=== PATIENT | female | born 1960 | race Caucasian/White ===

== ENCOUNTER → 2016-07-11 | Outpatient (CLI) | payer MEDICARE, OTHER ==
[~2016-07-11] MED LIST: ACCUPRIL PO; ASPIRIN81 MG PO; CLOPIDOGREL75 MG PO; DEXILANT60 MG PO; FLONASE 0.05% N16 G1; HYDRALAZINE HCL25 MG PO; KLONOPIN0.5 MG PO; LAMICTAL PO; LIPITOR20 MG PO; LISINOPRIL PO; MR; NORVASC PO; PATIENT'S PHARMACY; RISPERDAL2 MG PO
--- NOTE | ~2016-07-11 | ST ---
Unit #: [id number] #: [id number] Patient: XOCHITL SCOTT [id number] [facility]. [address] [address] [id number] O MR#: [id number] NAME: XOCHITL SCOTT : 1960 SEX: F STUDY DATE/TIME: 07/11/2016 UNIT: [facility] ROOM: STUDY DESCRIPTION: Attending Physician: Rosalia Carrillo M.D. Referring Physician: Rosalia Carrillo M.D. Primary Care Physician: Flaquito Gupta M.D. CARDIOLOGY REPORT EXAM Walking Lexiscan Cardiolite stress test. FINDINGS Baseline EKG: Sinus bradycardia, heart rate 58 beats per minute, left atrial abnormality, Q-wave noted in V1, poor R-wave progression, slightly prolonged QT, flattening of ST segment in lateral leads. PROCEDURE Lexiscan is a four-minute test with Lexiscan being injected within the first minute followed by Cardiolite. EKG during the test was equivocal to baseline. No acute ischemic changes. The patient had no complaints of chest pain, palpitations, or dizziness. Had increased shortness of breath and fatigueness which resolved in recovery phase. Next, maximum heart rate response was 122 beats per minute with a maximum blood pressure response of 165/87 mmHg. Next, Cardiolite was injected after Lexiscan within the first minute of the test. Radionuclide tests pending. Please correlate with nuclear images. Dictated by... Kylee Zee A.P.R.N. for Lisa Tirado/milvia TD: 07/11/2016 10:42 JOB #: [id number] CC: Flaquito Gupta M.D. CARDIOLOGY REPORT X Kylee Zee APRN CARDIOLOGY REPORT
--- NOTE | ~2016-07-11 | TH ---
Unit #: [id number] #: [id number] Patient: XOCHITL SCOTT [id number] [address] [address] [id number] O MR#: [id number] NAME: XOCHITL SCOTT : 1960 SEX: F STUDY DATE/TIME: 07/11/2016 UNIT: [facility] ROOM: STUDY DESCRIPTION: Attending Physician: Rosalia Carrillo M.D. Referring Physician: Rosalia Carrillo M.D. Primary Care Physician: Flaquito Gupta M.D. CARDIOLOGY REPORT EXAM Lexiscan Cardiolite stress test, nuclear portion. PROCEDURE Using technetium 99m labeled Cardiolite, rest and stress SPECT images were obtained. Multiple SPECT images were obtained in various views including horizontal and vertical long axis and short axis views of the left ventricle. Images were obtained by gated SPECT method. The patient was administered 11.77 mCi of Cardiolite at rest. The patient was administered 32.7 mCi of Cardiolite after Lexiscan infusion was completed. On the stress images, there is a small area of mild decreased isotope activity in the anteroapical wall. The rest images also show a mild area of decreased isotope activity anteroapically. Comparing rest and stress images, there is no obvious stress-induced ischemia noted. The left ventricular ejection fraction is calculated to be 62%. There is no focal wall motion abnormality seen. CONCLUSION 1. No obvious stress-induced ischemia noted. 2. There is a small area of predominantly fixed defect seen anteroapically most likely due to soft tissue artifact. 3. The left ventricular ejection fraction is calculated to be 62%. 4. There is no focal wall motion abnormality seen. 5. Normal Lexiscan Cardiolite stress test. Dictated by... Lisa Tirado TD: 07/11/2016 16:09 JOB #: [id number] CC: Flaquito Gupta M.D. Unit #: [id number] #: [id number] Patient: XOCHITL SCOTT CARDIOLOGY REPORT X Attavar,Rosalia Z MD <ELECTRONICALLY SIGNED> 11/30/16 1428 CARDIOLOGY REPORT
[2016-07-11 10:43] LABS: CHOLESTEROL 148 mg/dL (0-200); HDL CHOLESTEROL 60 mg/dL (35-95); LDL CHOLESTEROL 78 mg/dL (-130); LDL/HDL RATIO 1 RATIO (0-4); TRIGLYCERIDES 51 mg/dL (10-160)
== END | disposition home or self-care (01) ==
LOC: CNUC 07:42
PROVIDERS: Internal Medicine Cardiovascular Disease
DX: R07.9 Chest pain, unspecified (principal)
CPT/HCPCS: 36415; 78452; 80061; 84443; 93017; A9500; J2785

== ENCOUNTER 2016-11-20 14:06 | Emergency (ER) | payer MEDICARE, OTHER ==
--- NOTE | ~2016-11-20 | EKG ---
PATIENT: XOCHITL SCOTT UNIT #: [id number] Ventricular Rate: 67 BPM Atrial Rate: 67 BPM P-R Interval: 174 ms QRS Duration: 80 ms Q-T Interval: 414 ms QTC Calculation(Bezet): 437 ms P [place]: 56 degrees Calculated R [place]: -21 degrees Calculated T [place]: 35 degrees Diagnosis Line: Normal sinus rhythm Diagnosis Line: Normal ECG Diagnosis Line: Diagnosis Line: Confirmed by CELENA CUETO MD ([id number]) on Diagnosis Line: 11/21/2016 10:38:53 AM INTERPRETING MD: NORY BAKER
[~2016-11-20 14:06] MED LIST changes: -ASPIRIN81 MG PO; -CLOPIDOGREL75 MG PO; -DEXILANT60 MG PO; -FLONASE 0.05% N16 G1; -HYDRALAZINE HCL25 MG PO; -KLONOPIN0.5 MG PO; -LIPITOR20 MG PO; -LISINOPRIL PO; -MR; -PATIENT'S PHARMACY
[2016-11-20 14:46] LABS: BASOPHIL% 0.7 % (0-2.5); EOSINOPHIL# 0.2 X10e3 (0-0.7); EOSINOPHIL% 4.2 % (0.0-7.0); HEMATOCRIT 42.3 % (35.0-45.0); HEMOGLOBIN 13.9 gm/dL (12.0-16.0); LYMPHOCYTE# 1.7 X10e3 (1.0-3.5); LYMPHOCYTE% 29.5 % (17.0-45.0); MEAN CELL VOLUME 85.3 FL (83-96); MEAN CORPUSCULAR HEMOGLOBIN 28.1 PG (28-34); MEAN CORPUSCULAR HGB CONC 32.9 g/dL (30-36); MEAN PLATELET VOLUME 8.5 FL (6.5-11.5); MONOCYTE# 0.4 X10e3 (0-1.0); MONOCYTE% 7.5 % (3.0-12.0); NEUTROPHIL# 3.4 X10e3 (1.5-7.1); NEUTROPHIL% 58.1 % (40-75); PLATELET COUNT 181 X10e3 (140-420); RED BLOOD COUNT 4.95 X10e (3.90-5.30); WHITE BLOOD COUNT 5.9 X10e3 (4.0-10.5)
[2016-11-20 14:48] LABS: DIFF IND NO
[2016-11-20 15:15] LABS: ALBUMIN SERUM 4.2 g/dL (3.5-5.0); BILIRUBIN, DIRECT 0.1 mg/dL (0.0-0.2); BILIRUBIN,INDIRECT 0.2 mg/dL (0.0-0.9); BILIRUBIN,TOTAL 0.3 mg/dL (0.2-2.0); BUN/CREATININE RATIO 15.55; CALCIUM SERUM 9.4 mg/dL (8.4-10.2); CREATININE SERUM 0.9 mg/dL (0.6-1.4); GLOM FILT RATE Estimated 70.5 mL/min (>60); POTASSIUM 3.8 mmol/L (3.5-5.1); PROTEIN TOTAL SERUM 7.3 g/dL (6.0-8.3)
[2016-11-20 17:04] LABS: POC - CKMB 1.7 ng/mL (0.0-7.9); POC - TROPONIN <0.05 ng/mL (<=0.05)
== END 2016-11-20 18:30 | disposition home or self-care (01) ==
LOC: CED 14:06
DX: R51 Headache (principal); R42 Dizziness and giddiness; I10 Essential (primary) hypertension; Z88.5 Allergy status to narcotic agent; Z88.2 Allergy status to sulfonamides; Z88.8 Allergy status to other drugs, medicaments and biological substances
CPT/HCPCS: 36415; 80048; 80076; 82553; 84484; 85025; 93005; 96372; 99284; J1885

== ENCOUNTER 2016-12-17 12:53 | Inpatient (IN) | payer MEDICARE, OTHER ==
[~2016-12-17] VITALS: Ht 157.5 cm; Wt 74.2 kg
--- NOTE | ~2016-12-17 | DS ---
Unit #: [id number] #: [id number] Patient: XOCHITL SCOTT [id number] [facility]. [place], [place] [address] [id number] I MR#: [id number] NAME: XOCHITL SCOTT ROOM: 308 Age: 56 Sex: F Admission Date: 12/17/2016 : 1960 Discharge Date: 12/19/2016 Attending Physician: Davonte Hill M.D. Primary Care Physician: Flaquito Gupta M.D. DISCHARGE SUMMARY DISCHARGE DIAGNOSES 1. Acute left hemispheric event, TIA versus mimic. 2. Hypertension. HOSPITAL COURSE The patient is a 56-year-old female who presented to [facility] emergency department secondary to some tingling and numbness on the right side of her face. She also stated it was associated with some right-sided weakness. Secondary to the symptoms the patient received Alteplase at 13:35 on the day of admission and was admitted to the ICU. At the time of the medication dosing, CT of the head showed an old right frontal infarct, but no acute infarct. The patient tolerated the medicine well and there were no adverse side effects. CT angiogram of the head and neck showed subtle asymmetric filling of the MCA branches with better on the right than left. It was unclear whether this was acute or chronic and did not seem hemodynamically significant. Repeat head CT showed no evidence of bleed. The patient did then undergo MRI of the brain that showed right superior frontal encephalomalacia that was again previously seen, but did not show any acute hemorrhage or acute ischemia. As a result it is unclear whether the patient's presenting symptoms were TIA or some mimic event. At this time, given resolution of symptoms and no further findings on MRI, the patient is being discharged home and should follow up with neurology. She will follow up with [facility] at the next available appointment. DISCHARGE MEDICATIONS 1. Flonase 1 spay each nostril daily. 2. Klonopin 0.5 mg p.o. daily p.r.n. anxiety. 3. Hydralazine 25 mg p.o. b.i.d. 4. Zestril 20 mg p.o. daily. 5. Dexilant 60 mg daily. 6. Aspirin 81 mg daily. 7. Lipitor 20 mg p.o. at nighttime. 8. Plavix 75 mg daily. FOLLOWUP As mentioned above, the patient is to follow up with [facility] next available appointment. Unit #: [id number] #: [id number] Patient: XOCHITL SCOTT Dictated by... Lisa Clark/pushpa TD: 12/20/2016 11:29 JOB #: [id number] DISCHARGE SUMMARY Page 1 of 1 X Davonte Hill MD X DISCHARGE SUMMARY
--- NOTE | ~2016-12-17 | CT4 ---
[facility] A Service of [facility] RADIOLOGY TEXT RESULTS PATIENT: XOCHITL SCOTT LOCATION: [facility]-17 : 56 UNIT #: [id number] AGE: [address]: EMELINA PENA MD SEX: F ORDER DR: [id number] [facility]. [place], [place] [address] [id number] I MR#: [id number] Acc #: [id number] NAME: XOCHITL SCOTT : 1960 SEX: F STUDY DATE/TIME: 12/17/2016 14:45 UNIT: [facility] ROOM: [facility] STUDY DESCRIPTION: CT Abd and Pelv Wo Cont Attending Physician: Emelina Pena M.D. Ordering Physician: Sj Dempsey M.D. Primary Care Physician: Flaquito Gupta M.D. MEDICAL IMAGING REPORT This report is preliminary unless electronic signature is present EXAM CT abdomen and pelvis without contrast HISTORY Right lower quadrant pain starting today after TPA administration for stroke. Evaluate for bleeding. COMPARISON STUDIES 08/22/2013. TECHNIQUE Axial 5 mm images were obtained through the abdomen and pelvis without IV or oral contrast. This CT exam was performed with one or more of the following radiation dose reduction techniques: automatic exposure control, adjustment of mA and/or kV according to patient size, and iterative reconstruction. FINDINGS The liver, gallbladder, spleen, pancreas, adrenal glands and kidneys are normal. The aorta is normal in size. There is no adenopathy. There is contrast being excreted from the kidneys and there is contrast flowing in the bladder. There is no retroperitoneal hematoma and there is no groin hematoma. The aorta is normal in size. The bowel is normal, except for some sigmoid diverticula. The uterus and adnexal regions are normal. Bones show mild degenerative changes. IMPRESSION 1. There is no evidence of retroperitoneal bleeding or right groin bleeding. 2. Study is within normal limits, except for degenerative changes of the lumbar spine. [facility] A Service of [facility] RADIOLOGY TEXT RESULTS PATIENT: XOCHITL SCOTT LOCATION: [facility] : 56 UNIT #: [id number] AGE: [address]: EMELINA PENA MD SEX: F ORDER DR: Dictated by... Dominguez Costello M.D. THIS IS AN ELECTRONICALLY VERIFIED REPORT Dominguez Costello M.D. at 12/18/2016 7:08 AM FEL/pcl TD: 12/17/2016 22:00 JOB #: [id number] MEDICAL IMAGING REPORT Page 1 of 1 COPY
--- NOTE | ~2016-12-17 | CT71 ---
[facility] A Service of [facility] & [facility] RADIOLOGY TEXT RESULTS PATIENT: XOCHITL SCOTT LOCATION: C3A 308-01 : 56 UNIT #: [id number] AGE: [address]: Davonte Hill MD SEX: F ORDER DR: [id number] [facility] [address] [place], [place] [address] [id number] I MR#: [id number] Acc #: [id number] NAME: XOCHITL SCOTT : 1960 SEX: F STUDY DATE/TIME: 12/17/2016 16:41 UNIT: [facility] ROOM: [facility] STUDY DESCRIPTION: CT Head Wo Contrast Attending Physician: Martín Pena M.D. Ordering Physician: Sj Dempsey M.D. Primary Care Physician: Flaquito Gupta M.D. MEDICAL IMAGING REPORT This report is preliminary unless electronic signature is present EXAM CT head 12/17/2016 HISTORY Today. Pain right lower quadrant post tPA, had code stroke CTA studies at 13:10 today. Headache post tPA today. FINDINGS This CT exam was performed with one or more of the following radiation dose reduction techniques: Automatic exposure control, adjustment of mA and/or kV according to patient size, and iterative reconstruction. CT head performed skull base through vertex without intravenous contrast. Comparison 12/17/2016 at 1305 hours. Brainstem unremarkable. Cerebellum and cerebral hemispheres show normal gonzalez matter-white matter differentiation. No hemorrhage. There is no evidence of acute cortical ischemia. Stable area of encephalomalacic change anterior right frontal lobe consistent with remote vascular insult or remote post-traumatic change. The midline structures are nondisplaced. The basal ganglia are intact. The ventricles, cisterns and sulci are normal in size and contour. No intra- or extraaxial mass effect or abnormal intracranial fluid collection. The intraorbital soft tissues are unremarkable. The visualized paranasal sinuses and mastoid air cells are clear. IMPRESSION 1. No change from 1305 hours today. No clearly acute intracranial abnormality. Old area of encephalomalacic change anterior right frontal lobe may reflect remote vascular injury or remote trauma. There is no hemorrhage or intracranial mass effect. Dictated by... [facility] A Service of [facility] & [facility] RADIOLOGY TEXT RESULTS PATIENT: XOCHITL SCOTT LOCATION: [facility] 308-01 : 56 UNIT #: [id number] AGE: [address]: Davonte Hill MD SEX: F ORDER DR: Flaquito Dalton M.D. THIS IS AN ELECTRONICALLY VERIFIED REPORT Flaquito Dalton M.D. at 12/20/2016 7:36 AM FREDDIE/dean TD: 12/18/2016 02:00 JOB #: [id number] MEDICAL IMAGING REPORT Page 1 of 1 COPY
--- NOTE | ~2016-12-17 | EKG ---
PATIENT: XOCHITL SCOTT UNIT #: [id number] Ventricular Rate: 64 BPM Atrial Rate: 64 BPM P-R Interval: 174 ms QRS Duration: 84 ms Q-T Interval: 426 ms QTC Calculation(Bezet): 439 ms P [place]: 55 degrees Calculated R [place]: 27 degrees Calculated T [place]: 34 degrees Diagnosis Line: Normal sinus rhythm Diagnosis Line: Normal ECG Diagnosis Line: When compared with ECG of 20-NOV-2016 14:29, Diagnosis Line: No significant change was found Diagnosis Line: Confirmed by OTIS ISSA MD ([id number]) on 12/18/2016 Diagnosis Line: 12:07:54 AM INTERPRETING MD: MAEGAN BAKER
--- NOTE | ~2016-12-17 | CT18 ---
[facility] A Service of [facility] & [facility] RADIOLOGY TEXT RESULTS PATIENT: XOCHITL SCOTT LOCATION: [place] [address]-17 : 56 UNIT #: [id number] AGE: [address]: EMELINA PENA MD SEX: F ORDER DR: [id number] [facility] [address] [place], [place] [address] [id number] I MR#: [id number] Acc #: [id number] NAME: XOCHITL SCOTT : 1960 SEX: F STUDY DATE/TIME: 12/17/2016 13:16 UNIT: [facility] ROOM: [facility] STUDY DESCRIPTION: CT Angio Head Stroke Attending Physician: Emelina Pena M.D. Ordering Physician: Sj Dempsey M.D. Primary Care Physician: Flaquito Gupta M.D. MEDICAL IMAGING REPORT This report is preliminary unless electronic signature is present EXAM CT angiogram head FINDINGS Please see CT neck for results. Dictated by... Jorge Dave M.D. THIS IS AN ELECTRONICALLY VERIFIED REPORT Jorge Dave M.D. at 12/18/2016 7:08 AM PUNEET/romario TD: 12/17/2016 20:30 JOB #: [id number] MEDICAL IMAGING REPORT Page 1 of 1 COPY
--- NOTE | ~2016-12-17 | CO ---
Unit #: [id number] #: [id number] Patient: XOCHITL SCOTT [id number] [facility]. [place], [place] [address] [id number] I MR#: [id number] NAME: XOCHITL SCOTT ROOM: [facility] Age: 56 Sex: F Admission Date: 12/17/2016 : 1960 Attending Physician: Davonte Hill M.D. Primary Care Physician: Flaquito Gupta M.D. Consultation Date: 12/17/2016 CONSULTATION REPORT ADDENDUM This is an addendum to my dictation done earlier today. Addendum to include CT angiogram with findings discussed with Dr. Noyola at the time of previous dictation and evaluation, not amenable to acute intervention with no proximal clot seen. Will admit here for further monitoring, evaluation, or Intensive Care Unit. We thank you very much for allowing us to assist in the care in this patient from a consultation standpoint. She is improving on the IV alteplase. Will continue monitoring closely with IV fluids and further post alteplase protocol evaluation and MRI imaging. Critical care time spent in evaluation, assessment and decision making with this patient including discussion with patient, patient's family, Dr. Noyola and also ED physician, reviewing imaging, charts and patient education, decision making regarding plan of care is from 12:53 at the time of arrival to 13:43. Dictated by... Machelle Castrejon A.P.R.N. for Lisa Higgins/markos TD: 12/18/2016 08:27 JOB #: [id number] CONSULTATION REPORT Page 1 of 1 X Machelle Castrejon APRN X CONSULTATION REPORT
--- NOTE | ~2016-12-17 | HP ---
Unit #: [id number] #: [id number] Patient: XOCHITL SCOTT [id number] [address] [address] [id number] I MR#: [id number] NAME: XOCHITL SCOTT ROOM: 08503 Age: 56 Sex: F Admission Date: 12/17/2016 : 1960 Attending Physician: Emelina Pena M.D. Primary Care Physician: Flaquito Gupta M.D. HISTORY AND PHYSICAL CHIEF COMPLAINT Tingling and numbness to the right side of the face. HISTORY OF PRESENT ILLNESS The patient is a 56-year-old female with a history of hypertension, seizures, and mitral valve prolapse, brought to the emergency room complaining of tingling and numbness of the right side of the face, associated with weakness on the right side. The patient stated that patient was coming back from an Alcoholics Anonymous sobriety class on [facility] and noted weakness and numbness. The patient called EMS and patient was in the ER within 30 minutes. The patient received TPA at 1:[address] of the head showing an old right frontal infarct and no acute intracranial findings. The patient started feeling better after receiving TPA and is being admitted for the above reasons. She denies any fever, denies any chills, denies any shortness of breath, denies any chest pain, and denies any head trauma. PAST MEDICAL HISTORY 1. Hypertension. 2. Mitral valve prolapse. 3. Seizure disorder. PAST SURGICAL HISTORY 1. Tubal ligation. 2. Heart catheterization. HOME MEDICATIONS 1. Flonase. 2. Dexilant. 3. Lisinopril. 4. Klonopin. 5. Hydralazine. SOCIAL HISTORY Quit smoking and drinking and no illicit drug abuse. FAMILY HISTORY Reviewed. REVIEW OF SYSTEMS Positive for weakness on the right side of the upper and lower extremities and numbness and tingling. Denies any chest pain, denies any shortness of breath, and denies any abdominal pain. Unit #: [id number] #: [id number] Patient: XOCHITL SCOTT PHYSICAL EXAMINATION GENERAL: Patient is lying in bed not in acute distress. VITAL SIGNS: Temperature 97.7, pulse 71, respiratory rate 16, blood pressure 170/97, and saturating 96% on room air. HEENT: Head atraumatic, normocephalic. Pupils equal, round, and reactive to light and accommodation. Extraocular movements are intact. Dry mucous membranes. NECK: Supple. LUNGS: Decreased air entry at the bases. HEART: Regular rate and rhythm. ABDOMEN: Soft. Positive bowel sounds. EXTREMITIES: No cyanosis, no clubbing. NEUROLOGIC: Patient has facial droop on the right side and slurring of speech associated with weakness in the right upper and lower extremities with 2 over 5 compared to the left with 5 over 5. PSYCHIATRIC: Appears anxious. DIAGNOSTIC STUDIES LABORATORY: WBC 5, hemoglobin 14, hematocrit 41.4, and platelets 175,000. Glucose 119. INR is 1. Sodium 139, potassium 3.5, chloride 106, bicarb 24, glucose 121, BUN 13, creatinine 0.9, AST 22, ALT 16, alkaline phosphatase 60, and albumin 4.1. Troponin less than 0.05. IMAGING: CT of the head shows right frontal old infarct and no acute intracranial findings. Chest x-ray shows low lung volumes and no acute cardiopulmonary process. CARDIOLOGY: EKG shows normal sinus rhythm. ASSESSMENT 1. Right-sided weakness secondary to cerebrovascular accident, status post TPA. 2. Hypertension. 3. Seizure disorder. PLAN Admit the patient as inpatient to the ICU. Patient is status post TPA. Continue with post-TPA stroke orders and will have a Neurology consult. Check echo and repeat the labs, and further recommendations will follow. Dictated by Lisa Caro TD: 12/17/2016 16:22 JOB #: [id number] HISTORY AND PHYSICAL Page 1 of 1 X EMELINA PENA MD HISTORY AND PHYSICAL
--- NOTE | ~2016-12-17 | MR18 ---
[facility] A Service of [facility] RADIOLOGY TEXT RESULTS PATIENT: XOCHITL SCOTT LOCATION: [facility] 308 : 56 UNIT #: [id number] AGE: [address]: Davonte Hill MD SEX: F ORDER DR: [id number] [facility] [address]. [place], [place] [address] [id number] I MR#: [id number] Acc #: [id number] NAME: XOCHITL SCOTT : 1960 SEX: F STUDY DATE/TIME: 12/18/2016 13:09 UNIT: [facility] PCU ROOM: 308 STUDY DESCRIPTION: MR Brain Wo Contrast Attending Physician: Davonte Hill M.D. Ordering Physician: Machelle Castrejon A.P.R.N. Primary Care Physician: Flaquito Gupta M.D. MRI CENTER REPORT This report is preliminary unless electronic signature is present. EXAM Brain MRI without contrast, 12/18/[address] dated 12/17/2016. PROCEDURE Routine unenhanced brain MRI. HISTORY Recent tPA infusion, episode of right side paresthesias prompting tPA infusion. FINDINGS Redemonstrated area of right superior frontal encephalomalacia, but there is no MR evidence of recent or acute ischemia. There is no restricted diffusion. There is no acute hemorrhage. There is some old blood product at the margin of the right frontal area of encephalomalacia, but the exam is otherwise unremarkable. Bone marrow signal is normal. Normal flow voids are seen in the cerebral vessels. IMPRESSION Redemonstrated area of right superior frontal encephalomalacia, otherwise, normal unenhanced brain MRI, no evidence of acute hemorrhage or acute ischemia. Tiny amount of chronic blood product is associated with the area of encephalomalacia, but again no acute abnormality is identified. Dictated by... Aleks Guerrero M.D. [facility] A Service of [facility] RADIOLOGY TEXT RESULTS PATIENT: XOCHITL SCOTT LOCATION: [facility] 308 : 56 UNIT #: [id number] AGE: [address]: Davonte Hill MD SEX: F ORDER DR: THIS IS AN ELECTRONICALLY VERIFIED REPORT Aleks Guerrero M.D. at 12/27/2016 4:58 PM TEV/psc TD: 12/18/2016 21:40 JOB #: [id number] MRI CENTER REPORT Page 1 of 1 COPY
--- NOTE | ~2016-12-17 | EKG ---
PATIENT: XOCHITL SCOTT UNIT #: [id number] Ventricular Rate: 56 BPM Atrial Rate: 56 BPM P-R Interval: 190 ms QRS Duration: 88 ms Q-T Interval: 452 ms QTC Calculation(Bezet): 436 ms P [place]: 52 degrees Calculated R [place]: -19 degrees Calculated T [place]: 70 degrees Diagnosis Line: Sinus bradycardia Diagnosis Line: Otherwise normal ECG Diagnosis Line: When compared with ECG of 17-DEC-2016 13:24, Diagnosis Line: T wave amplitude has decreased in Anterior leads Diagnosis Line: Confirmed by OTIS ISSA MD ([id number]) on 12/18/2016 Diagnosis Line: 11:05:40 PM INTERPRETING MD: MAEGAN BAKER
--- NOTE | ~2016-12-17 | CO ---
Unit #: [id number] #: [id number] Patient: XOCHITL SCOTT [id number] [facility] [address] [place], [place] [address] [id number] I MR#: [id number] NAME: XOCHITL SCOTT ROOM: [facility] Age: 56 Sex: F Admission Date: 12/17/2016 : 1960 Attending Physician: Martín Pena M.D. Primary Care Physician: Flaquito Gupta M.D. Consultation Date: 12/17/2016 CONSULTATION REPORT CONSULTING PHYSICIAN Dr. Dempsey - Code Stroke protocol. PATIENT IDENTIFICATION This is a 56-year-old, right handed, female evaluated in the ER, room T5, at [facility]. SOURCE OF INFORMATION Obtained from the patient, the patient's sister via the telephone, as well as the medical record. HISTORY OF PRESENT ILLNESS This is a 56-year-old, right handed female, with a past medical history of bipolar disorder, hypertension, mitral valve prolapse, possible seizure disorder, history of prior traumatic brain injury. Denies a history of known stroke or intracranial hemorrhage. He presents to [facility] with report of change in speech, right sided weakness and numbness. Her last known well was around 11:45 to noon when she was driving. She called her sister when she noticed that she was having numbness and tingling and weakness on the right side and was having weakness and just "didn't feel right." She called her sister and then called EMS. She was brought in for a Code Stroke. They called about seven minutes prior to arrival to let us know that they were coming. She had some worsening of her speech here. EMS reports it had gotten worse as she was en route to the hospital. She was having trouble with expressing her words but was able to follow commands. She did have some weakness on the right arm and leg but no clear right facial weakness. May be questionably a droop but no profound weakness seen. No gaze palsy, no visual field cut. She did appear to have some sensory deficit on the right side compared to the left with some neglect. EMS reported that she had some stuttering initially. There is a mild waxing and waning to the severity of her speech difficulty and occasionally can get some clear phrases out but, given her measurable disabling deficit of speech, difficulty in continued right sided weakness, we elected to treat her with alteplase with her consent. The case was discussed with Dr. Noyola and reviewed with him prior to treatment with alteplase and also discussed with the ED physician, Dr. Dempsey, who saw the patient on arrival and reviewed risks and benefits with the patient. The patient's initial NIH was 10. She is improving significantly as alteplase is infusing. PAST MEDICAL HISTORY 1. Hypertension. 2. Mitral valve prolapse. 3. Questionable seizure disorder, details unclear. Unit #: [id number] #: [id number] Patient: XOCHITL SCOTT 4. History of traumatic brain injury in . She denies any history of intracranial hemorrhage, malignancy or any recent injury or surgery. 5. Bipolar disorder. 6. Drug use in the past with cocaine. ALLERGIES Codeine, Keflex, Bactrim. FAMILY HISTORY Positive for malignancy. Positive for stroke in her father. Positive for CAD. SOCIAL HISTORY The patient has a history of tobacco use and cocaine use in the past. No known alcohol use or abuse. She denies current tobacco use. REVIEW OF SYSTEMS 14-point review of systems attempted. Pertinent positives are as discussed above. She did not complain of abdominal pain prior to administration of alteplase but complains of some right abdominal pain now. She is going for a CAT scan per the ED physician. Otherwise, she denies any headache, fever or chills, change in weight or routine, recent illness or injury, blood in the urine or stool, bruising or bleeding. Review of systems is negative unless as discussed above. PHYSICAL EXAMINATION VITAL SIGNS: Temperature 97.8, pulse 71, respirations 16, blood pressure 170/97. Oxygen saturation 96%. Height 5 feet 0 inches. Her weight has not yet been documented but was obtained prior to alteplase calculations administration and is as per chart. NEUROLOGICAL EXAM: The patient is awake. She is tearful and upset. She is fully alert, however, she is unable to tell me her correct age. She can tell me the month and the year. She can tell me where she is at. She can follow simple commands but she has significant trouble with expressing herself through words and some trouble with naming and identifying but can follow commands. She has some dysarthria. CRANIAL NERVE EXAM: She responds to threat in the primary peripheral visual cuevas. Eyes are conjugate without ptosis or nystagmus. Extraocular movements are intact. Sensation of the face and scalp does reveal decreased sensation on the right compared to the left with some neglect including the arms and the legs on the right compared to the left. Hearing is intact to finger rub and conversation. Tongue is midline. Unable to fully visualize uvula and palate. Head turning and shoulder shrug was unremarkable. Neck was supple. MOTOR EXAM: She demonstrates normal bulk and tone on the left. Strength 5 out of 5 on the right. She has a drift of the right upper and right lower extremity. Can lift against gravity but has difficulty. SENSORY EXAM: As discussed above. GAIT AND ROMBERG: Deferred. REFLEXES: Unable to elicit. Toes are equivocal. COORDINATION: She has exaggerated past-pointing bilaterally. DIAGNOSTIC STUDIES IMAGING: CT of the head without contrast is negative for any acute intracranial findings. It does show a prior area of encephalomalacia on the right frontal lobe. Unit #: [id number] #: [id number] Patient: XOCHITL SCOTT CT angiogram of the head and neck per stroke protocol is pending. There is no acute obvious vascular cutoff but there is a symmetric filling of the left MCA compared to the right MCA in the mid to distal branches. Could be chronic versus possibly acute. LABORATORY: BMP unremarkable with a glucose of 121. PT 10.4, INR 1.0, PTT 27.3. Glucose 119. CBC unremarkable. IMPRESSION 1. Presentation concerning for possible acute left MCA infarct, improving with alteplase. 2. Hypertension. 3. History of tobaccoism, reformed. 4. History of bipolar disorder. PLAN Discussed the CT angiogram results with Dr. Noyola at this time. Appears to be distal asymmetric filling. Patient is improving with alteplase. I will continue to monitor closely and discuss with Dr. Noyola for further recommendations emergently versus non-emergently. We will follow along with you. Thank you very much for allowing us to assist in the care of this patient. Dictated by... Machelle Castrejon A.P.R.N. for Lisa Higgins/miryam TD: 12/18/2016 07:04 JOB #: [id number] CONSULTATION REPORT Page 1 of 1 X Machelle Castrejon APRN CONSULTATION REPORT
--- NOTE | ~2016-12-17 | CT72 ---
[facility] A Service of [facility] & [facility] RADIOLOGY TEXT RESULTS PATIENT: XOCHITL SCOTT LOCATION: [address] : [birth year] UNIT #: [id number] AGE: [address]: Davonte Hill MD SEX: F ORDER DR: [id number] [facility] [address] [place], [place] [address] [id number] I MR#: [id number] Acc #: [id number] NAME: XOCHITL SCOTT : 1960 SEX: F STUDY DATE/TIME: 12/17/2016 13:05 UNIT: [facility] ROOM: [facility] STUDY DESCRIPTION: CT Head Wo Contrast Stroke Attending Physician: Davonte Hill M.D. Ordering Physician: Sj Dempsey M.D. Primary Care Physician: Flaquito Gupta M.D. MEDICAL IMAGING REPORT This report is preliminary unless electronic signature is present EXAM Head CT without contrast. HISTORY Numbness and tingling, right side of body beginning 1 hour ago, worsening speech in the last 15 minutes. Right side weakness, stroke. 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 Hypertension and seizures. FINDINGS Multiple axial images were obtained from the skull base to vertex without intravenous contrast administration. This CT exam was performed with one or more of the following radiation dose reduction techniques: automatic exposure control, adjustment of mA and/or kV according to patient size, and iterative reconstruction. The ventricles are normal in size, shape and position. There is an old infarct with encephalomalacia in the right frontal lobe. There is no midline shift. There is no mass or mass effect, hemorrhage or acute infarct. The visualized paranasal sinuses are clear. IMPRESSION Old right frontal lobe infarct. No acute intracranial abnormality. STAT * RESULT Dictated by... Sumit Fink M.D. THIS IS AN ELECTRONICALLY VERIFIED REPORT Sumit Fink M.D. at 12/18/2016 2:35 PM KRT/pc TD: 12/17/2016 13:15 JOB #: [id number] [facility]. [facility] A Service of [facility] & [facility] RADIOLOGY TEXT RESULTS PATIENT: XOCHITL SCOTT [facility] [birth year] UNIT #: [id number] AGE: [address]: Davonte Hill MD SEX: F ORDER DR: MEDICAL IMAGING REPORT Page 1 of 1 COPY
--- NOTE | ~2016-12-17 | CT24 ---
[facility] A Service of [facility] & [facility] RADIOLOGY TEXT RESULTS PATIENT: XOCHITL SCOTT LOCATION: [address] : [birth year] UNIT #: [id number] AGE: [address]: EMELINA PENA MD SEX: F ORDER DR: [id number] [facility] [address] [place], [place] [address] [id number] I MR#: [id number] Acc #: [id number] NAME: XOCHITL SCOTT : 1960 SEX: F STUDY DATE/TIME: 12/17/2016 13:16 UNIT: [facility] ROOM: [facility] STUDY DESCRIPTION: CT Angio Neck Stroke Attending Physician: Emelina Pena M.D. Ordering Physician: Sj Dempsey M.D. Primary Care Physician: Flaquito Gupta M.D. MEDICAL IMAGING REPORT This report is preliminary unless electronic signature is present EXAM CT head and neck with contrast with carotid CT angiography HISTORY Numbness and tingling in the right side beginning 1 hour prior to arrival with speech disturbance. History of previous infarct. TECHNIQUE Axial imaging was obtained from the mid mediastinum to the top of the head with contrast. 100 cc of Isovue was used. CT angiography was performed with thick sliding MIPs, curved planar reformats and 3-D volume imaging with surface shading and volume shaded display. The study is correlated with a cervical MRA from 10/10/09. This CT exam was performed with one or more of the following radiation dose reduction techniques: automatic exposure control, adjustment of mA and/or kV according to patient size, and iterative reconstruction. FINDINGS Extravascular structures are unremarkable. The CT angiographic study shows wide patency of the great vessels off of the arch. In the posterior circulation, both vertebral arteries are widely patent. The left is a little bit larger than the right. The basilar artery is widely patent. In the carotid circulation, there is no evidence of plaque. No stenosis is seen across the bifurcations by NASCET criteria. The cervical internal carotid up through the siphons are widely patent. In the intracranial circulation, there is no evidence of aneurysm or major branch vessel occlusion. Mid to distal Sylvian fissure branches on the [facility] A Service of [facility] & [facility] RADIOLOGY TEXT RESULTS PATIENT: XOCHITL SCOTT LOCATION: [facility]17 : 56 UNIT #: [id number] AGE: [address]: EMELINA PENA MD SEX: F ORDER DR: left fill less extensively than on the right. This suggests probable small vessel occlusive disease in the left mid to distal MCA distribution. IMPRESSION Subtle asymmetric filling of MCA branches with better filling on the right than on the left. This could reflect either chronic disease in the left MCA distribution or embolization to mid to distal MCA branches on an acute basis. The major arterial segments intracranially are patent with no evidence of major branch vessel occlusion. The remainder of the CTA study is unremarkable. Dictated by... Jorge Dave M.D. THIS IS AN ELECTRONICALLY VERIFIED REPORT Jorge Dave M.D. at 12/18/2016 7:08 AM PUNEET/romario TD: 12/17/2016 20:34 JOB #: [id number] MEDICAL IMAGING REPORT Page 1 of 1 COPY
--- NOTE | ~2016-12-17 | A ---
[facility] Nutrition Therapy DATE: 12/19/16 Patient: XOCHITL SCOTT Physician: [email or web address] Address: [address] Room/Bed: [address] [place] [address], Zip: [place] [address] Admit Date: 12/17/16 Date of : [birth year] Height: 5 2 Weight: 163 74.2 NUTRITIONAL ASSESSMENT: REASON: Routine stroke consult Admitting dx: 56 y/o female admitted with possible CVA, s/p TPA PMH: HTN, seizure disorder, CVA Anthropometrics: Ht: 62", Wt: 163 lbs, BMI: 29 (overweight) Labs: A1C and lipid panel WNL Meds: PPI Assessment: Chart reviewed, events noted. See admitting dx and PMH as stated above. RD familiar with patient from ICU rounds yesterday. Original CT showed no acute infarct only old infarct. MRI done yesterday- [employer] Payment report reviewed- report appears negative for new stroke however MD has not yet confirmed this or spoke with the patient regarding her MRI results yet. She is tolerating a healthy heart diet per [employer] recs, with no chewing/swallowing difficulties and adequate PO intake. She denies any recent weight loss or gain. Due to normal lipid panel, no dietary restrictions necessary at this time. I did encourage weight loss due to her BMI and overall healthy eating pattern. Will write to change diet to regular per patient request. She denies any further nutritional needs. See RD recs below. Dx: No nutrition diagnosis Intervention: Regular diet Monitoring, Evaluation and Goals: PO intake 50-100% of meals. Recommendations: Please change diet to regular per patient request. See RD assessment above. Please consult with any further nutritional needs. Diet education not warranted at this time. RD will follow Not at nutrition risk Respectfully, [facility] Therapy DATE: 12/19/16 Patient: XOCHITL SCOTT Physician: [email or web address] Address: [address] Room/Bed: [address] [place] [address], Zip: [place] [address] Admit Date: 12/17/16 Date of : 56 Height: 5 2 Weight: 163 74.2 Nena Ramires, MARKIE, LD [employer] [facility] cc: client file
--- NOTE | ~2016-12-17 | CR72 ---
[facility] A Service of [place] & [facility] RADIOLOGY TEXT RESULTS PATIENT: XOCHITL SCOTT LOCATION: [address] : 56 UNIT #: [id number] AGE: [address]: EMELINA PENA MD SEX: F ORDER DR: [id number] [facility] [address]. [place], [place] [address] [id number] I MR#: [id number] Acc #: [id number] NAME: XOCHITL SCOTT : 1960 SEX: F STUDY DATE/TIME: 12/17/2016 13:39 UNIT: [facility] ROOM: [facility] STUDY DESCRIPTION: CR Chest Single View Portable Attending Physician: Emelina Pena M.D. Ordering Physician: Sj Dempsey M.D. Primary Care Physician: Flaquito Gupta M.D. MEDICAL IMAGING REPORT This report is preliminary unless electronic signature is present EXAM Chest portable 12/17/2016 1339 hours HISTORY 56-year-old woman with altered mental status. Numbness and tingling on right side of face. History of hypertension, former smoker. COMPARISON 06/04/2016 FINDINGS Portable upright chest demonstrates lower lung volumes than on the prior study. Heart size is stable. Aorta is mildly tortuous. The lungs are clear and there are no effusions. IMPRESSION Lower lung volumes with no acute cardiopulmonary findings. Dictated by... Olamide Garcia M.D. THIS IS AN ELECTRONICALLY VERIFIED REPORT Olamide Garcia M.D. at 12/17/2016 9:02 PM IRAJ/dean TD: 12/17/2016 20:12 JOB #: [id number] MEDICAL IMAGING REPORT Page 1 of 1 COPY
[2016-12-17 13:19] LABS: BASOPHIL# 0.1 X10e3 (0-0.3); BASOPHIL% 1.3 % (0-2.5); DIFF IND NO; EOSINOPHIL# 0.2 X10e3 (0-0.7); EOSINOPHIL% 4.6 % (0.0-7.0); HEMATOCRIT 41.4 % (35.0-45.0); LYMPHOCYTE# 1.3 X10e3 (1.0-3.5); LYMPHOCYTE% 25.9 % (17.0-45.0); MEAN CELL VOLUME 84.6 FL (83-96); MEAN CORPUSCULAR HEMOGLOBIN 28.6 PG (28-34); MEAN CORPUSCULAR HGB CONC 33.8 g/dL (30-36); MONOCYTE# 0.4 X10e3 (0-1.0); MONOCYTE% 8.4 % (3.0-12.0); NEUTROPHIL% 59.8 % (40-75); PLATELET COUNT 175 X10e3 (140-420); RED BLOOD COUNT 4.89 X10e (3.90-5.30); RED CELL DISTRIBUTION WIDTH 13.1 % (11.0-15.5)
[2016-12-17 13:27] LABS: PARTIAL THROMBOPLASTIN TIME 27.3 SECONDS (23.5-31.3); PROTHROMBIN TIME (PATIENT) 10.4 SECONDS (10.0-11.7)
[2016-12-17 13:36] LABS: ALBUMIN SERUM 4.1 g/dL (3.5-5.0); BILIRUBIN, DIRECT 0.1 mg/dL (0.0-0.2); BILIRUBIN,INDIRECT 0.5 mg/dL (0.0-0.9); BILIRUBIN,TOTAL 0.6 mg/dL (0.2-2.0); BUN/CREATININE RATIO 14.44; CALCIUM SERUM 8.9 mg/dL (8.4-10.2); CREATININE SERUM 0.9 mg/dL (0.6-1.4); GLOM FILT RATE Estimated 70.5 mL/min (>60); POTASSIUM 3.5 mmol/L (3.5-5.1)
[2016-12-17] MEDS ORDERED: KLONOPIN0.5 MG PO (13:43)
[2016-12-17] MEDS ORDERED: PATIENT'S PHARMACY (13:43)
[2016-12-17] MEDS ORDERED: HYDRALAZINE HCL25 MG PO (13:43)
[2016-12-17] MEDS ORDERED: FLONASE 0.05% N16 G1 (13:43)
[2016-12-17] MEDS ORDERED: DEXILANT60 MG PO (13:43)
[2016-12-17] MEDS ORDERED: LISINOPRIL PO (13:43)
[2016-12-17 13:48] LABS: POC - CKMB 3.9 ng/mL (0.0-7.9); POC - TROPONIN <0.05 ng/mL (<=0.05)
[2016-12-17] MEDS ORDERED: MR (14:04)
[2016-12-17 15:30] LABS: URINE SOURCE CLEAN CATCH
[2016-12-17 15:31] LABS: POC - GFR >60.0 mL/min (>60)
[2016-12-17 15:35] LABS: POC - CKMB 2.9 ng/mL (0.0-7.9); POC - TROPONIN <0.05 ng/mL (<=0.05)
[2016-12-17 15:38] LABS: URINE APPEARANCE CLEAR; URINE BILIRUBIN NEG (NEG); URINE BLOOD 1+ (NEG); URINE COLOR YELLOW; URINE GLUCOSE NEG (NEG); URINE KETONE NEG (NEG); URINE LEUKOCYTE ESTERASE NEG (NEG); URINE NITRATE NEG (NEG); URINE PH 7.5 (5-8); URINE PROTEIN NEG (NEG); URINE SPECIFIC GRAVITY 1.021 (1.003-1.035); URINE UROBILINOGEN 0.2 MG/DL (NEG)
[2016-12-17 15:41] LABS: URINE BACTERIA AUWI NEG (NEGATIVE); URINE SQUAMOUS EPITHELIAL CELL NONE SEEN /[HPF]; UWBCS1 AUWI 0-2 (0-5)
[2016-12-17 15:50] LABS: CULTURE INDICATED? NO
[2016-12-17 16:01] LABS: AMPHETAMINE NEG (NEG); BARBITURATES NEG (NEG); BENZODIAZEPINES NEG (NEG); COCAINE NEG (NEG); MARIJUANA NEG (NEG); OPIATES NEG (NEG); TRICYCLIC ANTIDEPRESSANTS NEG (NEG); U METHADONE NEG (NEG)
[2016-12-18 02:29] LABS: BASOPHIL# 0.1 X10e3 (0-0.3); BASOPHIL% 1.1 % (0-2.5); EOSINOPHIL# 0.2 X10e3 (0-0.7); EOSINOPHIL% 5.1 % (0.0-7.0); HEMATOCRIT 39.1 % (35.0-45.0); HEMOGLOBIN 13.2 gm/dL (12.0-16.0); LYMPHOCYTE# 1.3 X10e3 (1.0-3.5); LYMPHOCYTE% 26.5 % (17.0-45.0); MEAN CELL VOLUME 84.9 FL (83-96); MEAN CORPUSCULAR HEMOGLOBIN 28.6 PG (28-34); MEAN CORPUSCULAR HGB CONC 33.6 g/dL (30-36); MEAN PLATELET VOLUME 8.3 FL (6.5-11.5); MONOCYTE# 0.4 X10e3 (0-1.0); MONOCYTE% 9.4 % (3.0-12.0); NEUTROPHIL# 2.8 X10e3 (1.5-7.1); NEUTROPHIL% 57.9 % (40-75); PLATELET COUNT 170 X10e3 (140-420); RED BLOOD COUNT 4.61 X10e (3.90-5.30); WHITE BLOOD COUNT 4.8 X10e3 (4.0-10.5)
[2016-12-18 02:30] LABS: DIFF IND NO
[2016-12-18 02:53] LABS: BUN/CREATININE RATIO 17.14; CALCIUM SERUM 8.5 mg/dL (8.4-10.2); CREATININE SERUM 0.7 mg/dL (0.6-1.4); GLOM FILT RATE Estimated 95.5 mL/min (>60); POTASSIUM 3.3 mmol/L (3.5-5.1)
[2016-12-18 15:28] LABS: BASOPHIL% 0.8 % (0-2.5); EOSINOPHIL# 0.2 X10e3 (0-0.7); EOSINOPHIL% 2.7 % (0.0-7.0); HEMATOCRIT 44.6 % (35.0-45.0); HEMOGLOBIN 14.8 gm/dL (12.0-16.0); LYMPHOCYTE# 1.3 X10e3 (1.0-3.5); LYMPHOCYTE% 22.5 % (17.0-45.0); MEAN CELL VOLUME 85.3 FL (83-96); MEAN CORPUSCULAR HEMOGLOBIN 28.4 PG (28-34); MEAN CORPUSCULAR HGB CONC 33.2 g/dL (30-36); MEAN PLATELET VOLUME 8.4 FL (6.5-11.5); MONOCYTE# 0.5 X10e3 (0-1.0); NEUTROPHIL# 3.7 X10e3 (1.5-7.1); PLATELET COUNT 193 X10e3 (140-420); RED BLOOD COUNT 5.22 X10e (3.90-5.30); WHITE BLOOD COUNT 5.6 X10e3 (4.0-10.5)
[2016-12-18 15:31] LABS: DIFF IND NO
[2016-12-19] MEDS ORDERED: LIPITOR20 MG PO (13:48)
[2016-12-19] MEDS ORDERED: ASPIRIN81 MG PO (13:48)
[2016-12-19] MEDS ORDERED: CLOPIDOGREL75 MG PO (13:49)
== END 2016-12-19 14:26 | disposition home or self-care (01) | DRG 69 ==
LOC: CED 12:53 → CEDOF 15:16 → CED 15:52 → CEDOF 16:58 → CICCU3 16:58 → C3A PCU 12-18 15:54
PROVIDERS: Emergency Medicine; Internal Medicine; Nurse Practitioner
PROC: 3E03317 Introduction of Other Thrombolytic into Peripheral Vein, Percutaneous Approach (ICD-10-PCS; principal; 2016-12-17)
PROC: B32GYZZ Computerized Tomography (CT Scan) of Bilateral Vertebral Arteries using Other Contrast (ICD-10-PCS; 2016-12-17)
PROC: B32RYZZ Computerized Tomography (CT Scan) of Intracranial Arteries using Other Contrast (ICD-10-PCS; 2016-12-17)
PROC: B328YZZ Computerized Tomography (CT Scan) of Bilateral Internal Carotid Arteries using Other Contrast (ICD-10-PCS; 2016-12-17)
DX: G45.9 Transient cerebral ischemic attack, unspecified (principal); G93.89 Other specified disorders of brain; Q21.1 Atrial septal defect; I10 Essential (primary) hypertension; G40.909 Epilepsy, unspecified, not intractable, without status epilepticus; I34.1 Nonrheumatic mitral (valve) prolapse; Z98.51 Tubal ligation status; Z87.891 Personal history of nicotine dependence; Z87.820 Personal history of traumatic brain injury; F31.9 Bipolar disorder, unspecified; R51 Headache; R29.810 Facial weakness
CPT/HCPCS: 36415; 51702; 70450; 70496; 70498; 70551; 71010; 74176; 80048; 80061; 80076; 80307; 81003; 82553; 82565; 82947; 83036; 84443; 84484; 85025; 85610; 85730; 86850; 86900; 86901; 92523-GN; 92610; 93005; 93306; 97162; 97165; 99291; G8978-GP; G8979-GP; G8980-GP; G8987-GO; G8988-GO; G8989-GO; G8996-GN; G8997-GN; G8998-GN; J2997; Q9967

== ENCOUNTER → 2017-01-08 | Outpatient (CLI) | payer MEDICARE, OTHER ==
[~2017-01-08] MED LIST changes: +ASPIRIN81 MG PO; +CLOPIDOGREL75 MG PO; +DEXILANT60 MG PO; +FLONASE 0.05% N16 G1; +HYDRALAZINE HCL25 MG PO; +KLONOPIN0.5 MG PO; +LIPITOR20 MG PO; +LISINOPRIL PO; +MR; +PATIENT'S PHARMACY
--- NOTE | ~2017-01-08 | MY26 ---
[facility] A Service of [facility] & [facility] RADIOLOGY TEXT RESULTS PATIENT: XOCHITL SCOTT LOCATION: [facility] : 56 UNIT #: [id number] AGE: [address]: Flaquito Gupta MD SEX: F ORDER DR: [id number] [facility] [address] [place], [place] [address] [id number] O MR#: [id number] Acc #: [id number] NAME: XOCHITL SCOTT : 1960 SEX: F STUDY DATE/TIME: 01/08/2017 9:44 UNIT: [facility] ROOM: STUDY DESCRIPTION: MY GILDA DIAGNOSTIC W/ CAD BILAT Attending Physician: Flaquito Gupta M.D. Referring Physician: Flaquito Gupta M.D. Ordering Physician: Flaquito Gupta M.D. Primary Care Physician: Flaquito Gupta M.D. MEDICAL IMAGING REPORT This report is preliminary unless electronic signature is present EXAM Bilateral digital diagnostic mammogram with CAD and targeted right breast ultrasound, 01/08/2017 INDICATION 56-year-old female complaining of pain for 3 weeks in the upper outer right breast extending into the right axilla. She denies a palpable abnormality. No personal history of breast cancer. Family history positive (degree relative not indicated). TECHNIQUE CC, MLO and true lateral views were obtained on the right. Standard screening views obtained on the left. Targeted ultrasound of the right breast was also performed extending into the right axilla. Comparison mammograms 01/04/2016 and 12/20/2015. FINDINGS MAMMOGRAPHIC FINDINGS: Breast parenchyma is composed of scattered fibroglandular densities. The pattern is unchanged. There is no new dominant nodule mass or suspicious cluster of microcalcifications. Benign calcifications are present on the left. Previously evaluated ridge of prominent fibroglandular tissue in the upper outer right breast unchanged. No adenopathy. ULTRASOUND FINDINGS RIGHT BREAST: The patient was initially independently scanned by the technologist and then rescanned in my presence. Imaging of the area of patient pain symptoms was performed from the 9 o'clock through the 12 o'clock positions and continued into the right axilla. Ultrasound evaluation is negative with the exception of benign appearing lymph nodes in the right axilla, not visible mammographically. Imaging findings between modalities are concordant. [facility]. [facility] A Service of [facility] RADIOLOGY TEXT RESULTS PATIENT: XOCHITL SCOTT LOCATION: [facility] : 56 UNIT #: [id number] AGE: [address]: Flaquito Gupta MD SEX: F ORDER DR: Absent new or worsening symptoms in either breast, return to an annual screening regimen is recommended. Findings and recommendations were discussed with the patient. She voiced understanding and agreement. IMPRESSION Negative diagnostic mammogram and targeted right breast ultrasound. Clinical considerations to determine additional imaging at this point. Return to annual screening recommended. See discussion above. Patients over the age of 40 are entered into a reminder system with target due date for the next mammogram. A result letter will also be sent to the patient. BIRADS: 1 Negative Dictated by... Jw Ordonez M.D. THIS IS AN ELECTRONICALLY VERIFIED REPORT Jw Ordonez M.D. at 01/08/2017 2:07 PM BAR/carlita TD: 01/08/2017 11:09 JOB #: [id number] MEDICAL IMAGING REPORT Page 1 of 1 COPY
--- NOTE | ~2017-01-08 | US24 ---
[facility] A Service of [facility] RADIOLOGY TEXT RESULTS PATIENT: XOCHITL SCOTT LOCATION: [facility] : 56 UNIT #: [id number] AGE: [address]: Flaquito Gupta MD SEX: F ORDER DR: [id number] [facility] [address] [place], [place] [address] [id number] O MR#: [id number] Acc #: [id number] NAME: XOCHITL SCOTT : 1960 SEX: F STUDY DATE/TIME: 01/08/2017 10:09 UNIT: [facility] ROOM: STUDY DESCRIPTION: US Breast Unilateral Attending Physician: Flaquito Gupta M.D. Referring Physician: Flaquito Gupta M.D. Ordering Physician: Flaquito Gupta M.D. Primary Care Physician: Flaquito Gupta M.D. MEDICAL IMAGING REPORT This report is preliminary unless electronic signature is present EXAM Targeted ultrasound of the right breast and axilla 01/08/2017 INDICATIONS Correlation with diagnostic mammography same date. FINDINGS Please see diagnostic mammogram report for the same day. Patients over the age of 40 are entered into a reminder system with target due date for the next mammogram. A result letter will also be sent to the patient. BIRADS: 1 Negative Dictated by... Jw Ordonez M.D. THIS IS AN ELECTRONICALLY VERIFIED REPORT Jw Ordonez M.D. at 01/08/2017 2:07 PM Mario TD: 01/08/2017 11:10 JOB #: [id number] MEDICAL IMAGING REPORT Page 1 of 1 COPY
== END | disposition home or self-care (01) ==
LOC: CWCC 09:07
DX: N64.4 Mastodynia (principal)
CPT/HCPCS: 76641; G0204

== ENCOUNTER → 2017-01-30 | Outpatient (CLI) | payer MEDICARE, OTHER ==
--- NOTE | ~2017-01-30 | CR230 ---
[facility] A Service of [facility] & [facility] RADIOLOGY TEXT RESULTS PATIENT: XOCHITL SCOTT LOCATION: [facility] : 56 UNIT #: [id number] AGE: [address]: Flaquito Gupta MD SEX: F ORDER DR: [id number] [facility] [address] [place], [place] [address] [id number] O MR#: [id number] Acc #: [id number] NAME: XOCHITL SCOTT : 1960 SEX: F STUDY DATE/TIME: 01/30/2017 10:37 UNIT: [facility] ROOM: STUDY DESCRIPTION: CR Shoulder Min 2 View Rt Attending Physician: Flaquito Gupta M.D. Referring Physician: Flaquito Gupta M.D. Ordering Physician: Flaquito Gupta M.D. Primary Care Physician: Flaquito Gupta M.D. MEDICAL IMAGING REPORT This report is preliminary unless electronic signature is present EXAM Right shoulder 3 views, 01/30/2017 at 10:37 a.m. COMPARISON None HISTORY Order states pain right shoulder. History sheet states hurts to raise and lower or put arm behind the back. Pain for 4 months. Fell one year ago but not sure if injured shoulder. FINDINGS There is minimal AC joint arthrosis without radiographic evidence of injury. Glenohumeral joint is normal. There is no fracture, dislocation, or osseous lesion. Visualized thorax is normal. IMPRESSION 1. Mild AC joint arthrosis. 2. The exam is otherwise unremarkable. Dictated by... Jocelyn Mendez M.D. THIS IS AN ELECTRONICALLY VERIFIED REPORT Jocelyn Mendez M.D. at 01/31/2017 12:04 PM SACHIN/carlita TD: 01/30/2017 14:52 JOB #: [id number] MEDICAL IMAGING REPORT Page 1 of 1 COPY
== END | disposition home or self-care (01) ==
LOC: CRAD 10:03
DX: M19.011 Primary osteoarthritis, right shoulder (principal)
CPT/HCPCS: 73030